=== PATIENT | female | born 1990 | race Caucasian/White ===

== ENCOUNTER 2019-01-03 22:45 | Emergency (ER) | payer SELFPAY ==
[~2019-01-03] VITALS: Ht 162.6 cm; Wt 59.8 kg
[~2019-01-03 22:45] MED LIST: ACET500C5 PO; ACYC800T5 PO; BEN50 PO; CEPH-443 PO; CLIN300C10 PO; ERYT1OIN6 LEFT EYE; HC1C30 TOP; IBUP-1561 PO
[2019-01-03 22:47] VITALS: Ht 162.6 cm; Wt 59.8 kg
--- NOTE | 2019-01-04 00:24 | ERD ---
ER Documentation Chief Complaint Chief Complaint Dysuria/vaginal redness X 1wk HPI This is a 28-year-old female who presents here in the emergency department with complaints of dysuria, redness and lesion to her vaginal area for about a week. Sexually active with one partner only. Partner has no symptoms. Stated that her , partner stated that it looks like herpes. Stated that she just had a baby 2 months ago via . LMP: Stated that this is irregular. G1, . Denies headache, head injury, loss of consciousness, dizziness, neck pain, neck stiffness, throat pain, difficulty swallowing, difficulty breathing lying flat, shoulder pain, chest pain, back pain, abdominal pain, nausea, vomiting, constipation, diarrhea, urinary symptoms, or possibility being , loss of bowel and bladder control, trauma, injury, falls, difficulty walking due to pain, numbness or tingling sensation, calf pain, recent travel, recent major surgery in the last 3 weeks, calf pain, recent long travel, recent exposure to any illness, recent antibiotic use in the last 3 months, fever, chills, seizures. Past medical history: Denies. Surgical history: x1. Social: Denies smoking, use of alcoholic beverages, use of illegal drugs. ROS All systems reviewed and are negative except as per history of present illness. Medications Home Meds Active Scripts Acetaminophen* (Tylophen*) 500 Mg Capsule, 1 CAP PO Q6H PRN for PAIN AND OR ELEVATED TEMP, #20 CAP Prov:PASILABAN,KLAR F 01/04/19 Cephalexin* (Keflex*) 500 Mg Capsule, 500 MG PO TID for 7 Days, CAP Prov:PASILABAN,KLAR F 01/04/19 Acyclovir* (Zovirax*) 800 Mg Tablet, 800 MG PO 5 TIMES DAILY for 7 Days, TAB Prov:PASILABAN,KLAR F 01/04/19 Erythromycin (Erythromycin Opth) 3.5 Gm Oint..gm., 1 APPLIC LEFT EYE QID for 7 Days, EA Prov:HI MORATAYA 05/13/15 Hydrocortisone* Topical (Hydrocortisone* Topical) 1%-28.35 Gm Cream..g., 1 APPLIC TOP Q6 PRN for ITCHING, #1 TUB Prov:CHOMARIA ELENAA 11/20/14 Diphenhydramine Hcl* (Benadryl*) 50 Mg Cap, 50 MG PO Q6 PRN for ITCHING, #20 CAP Prov:CHOMAKI 11/20/14 Ibuprofen* (Motrin*) 400 Mg Tab, 400 MG PO Q6, #15 TAB Prov:CHO,MAKI 15 Clindamycin Hcl* (Clindamycin Hcl*) 300 Mg Capsule, 300 MG PO Q6 for 7 Days, CAP Prov:CHO,MAKI 11/20/14 Allergies Allergies: Coded Allergies: No Known Allergy (Unverified , 05/13/15) PMhx/Soc History of Surgery: No Anesthesia Reaction: No Hx Neurological Disorder: No Hx Respiratory Disorders: No Hx Cardiac Disorders: No Hx Psychiatric Problems: No Hx Miscellaneous Medical Probl: No Hx Alcohol Use: No Hx Substance Use: No Hx Tobacco Use: No Physical Exam Vitals Physical Exam Const: No acute distress Head: Atraumatic Eyes: Normal Conjunctiva ENT: Normal External Ears, Nose and Mouth. Neck: Full range of motion. No meningismus. Resp: Clear to auscultation bilaterally Cardio: Regular rate and rhythm, no murmurs Abd: Soft, non tender, non distended. Normal bowel sounds. No pelvic tenderne ss. Examined with female stone rubber, Joy GOFF. Circular raised lesion noted to right lower vaginal area. Equal hair distribution. No discharge. No bleeding. Skin: No petechiae or rashes Back: No midline or flank tenderness Ext: No cyanosis, or edema Neur: Awake and alert Psych: Normal Mood and Affect Results 24 hrs Laboratory Tests Test 01/04/19 00:20 Urine Color STRAW Urine Clarity SLIGHTLY CLOUDY Urine pH 5.0 Urine Specific [place] 1.018 Urine Ketones NEGATIVE mg/dL Urine Nitrite NEGATIVE mg/dL Urine Bilirubin NEGATIVE mg/dL Urine Urobilinogen NEGATIVE mg/dL Urine Leukocyte Esterase 2+ Isidoro/ul Urine Microscopic RBC 14 /HPF Urine Microscopic WBC 53 /HPF Urine Bacteria FEW /HPF Urine Hemoglobin NEGATIVE mg/dL Urine Glucose NEGATIVE mg/dL Urine Total Protein NEGATIVE mg/dl Urine Test NEGATIVE Chlamydia trachomatis RNA (TMA) NOT DETECTED Chlamydia/GC Comment SEE NOTE Neisseria gonorrhoeae RNA (TMA) NOT DETECTED Procedures/MDM Diagnostic tests: hCG urine: Negative. Urinalysis: UTI. Culture urine: Sent. Gonorrhea and Chlamydia: Treatment: Refuses. Re-evaluation: Not in distress. Denies vaginal bleeding. No signs of hemorrh aging. Stated that she feels much better at this time. Stated that she is comfortable to go home. Differential diagnosis I have low suspicion for hemorrhaging, sepsis, ovarian torsion, ovarian cyst rupture. Final diagnosis: Herpes. Dysuria. UTI. Prescription: Tylenol. Acyclovir. Keflex. Instructed not to breast feed while on Acyclovir. Instructed to have her baby do formula until 5 days after she finishes her Acyclovir. Follow-up with branch specialist in the next 24-48 hours. Come back here in the [facility] department for any new symptoms or any worsening symptoms. All questions and concerns were answered. Patient and family members verbalized understanding and agreed with plan of care. Hemodynamically stable on discharge. Departure Diagnosis: Primary Impression: Dysuria Additional Impressions: Herpes genitalis in women UTI (urinary tract infection) Condition: Stable Additional Instructions: Follow-up with branch specialist in the next 24-48 hours. Please do not breast-feed while taking acyclovir. Come back here in the emergency department for any new symptoms or any worsening symptoms. VIKTORIYA CHRISTENSEN Jan 04, 2019 00:24
[2019-01-04 03:20] VITALS: BP 127/83; PULSE 78; RESP 18
== END 2019-01-04 03:22 | disposition home or self-care (01) ==
LOC: FTE 22:45
DX: N39.0 Urinary tract infection, site not specified (principal); A60.09 Herpesviral infection of other urogenital tract
CPT/HCPCS: 81001; 84703; 87086; 87591; 99283